=== PATIENT | female | born 1935 | race Caucasian/White ===

== ENCOUNTER → 2018-04-14 12:31 | Outpatient (CLI) | payer MEDICARE, OTHER ==
--- NOTE | 2018-04-16 12:11 | ST ---
PATIENT:KIERA MAYFIELD MEDICAL RECORD: [id number] SEX: F LOCATION:[facility] ORDER #: ADMISSION DATE: 04/14/18 AGE OF PATIENT: 83 REFERRING PHYSICIAN: INTERPRETING PHYSICIAN: KIM CONNELLY MD DATE OF SERVICE: 04/14/2018 PROCEDURE: Nuclear stress test. INDICATIONS: Angina, coronary artery disease, hypertension, hyperlipidemia, shortness of breath. She was exercised on standard Lexiscan protocol with 33 mCi of sestamibi injected at peak stress, 11 mCi were used previously for rest images. FINDINGS: Gated SPECT reveals a preserved ejection fraction at 60%. Decreased thickening and brightening throughout the anteroapical segments. SPECT IMAGING: Cardiolite was used as a myocardial perfusion agent. There was a fixed perfusion defect anteroapically compatible with previous anteroapical myocardial infarction. There is no evidence of reversible ischemia and the remaining segments are with homogeneous uptake at rest and stress. OVERALL IMPRESSION: This is an abnormal nuclear stress test with a fixed perfusion defect anteroapically. No evidence of reversible ischemia. Gated SPECT reveals preserved ejection fraction of 60%. Continue medical management of the coronary artery disease and cardiac risk factors. TRANSINT:[id number] Voice Confirmation ID: [id number] DOCUMENT ID: [id number] KIM CONNELLY MD at 1211 CC: [id number] DICTATION DATE: 04/14/18 1603 BENDER MACHINE: 04/15/18 0821 DEP CLI 04/14/18 [place] [id number]
== END | disposition home or self-care (01) ==
LOC: D.HCCARDIO 12:30
DX: I25.10 Atherosclerotic heart disease of native coronary artery without angina pectoris (principal)

== ENCOUNTER → 2018-11-03 09:23 | Outpatient (CLI) | payer MEDICARE, OTHER ==
--- NOTE | 2018-11-11 08:42 | EC ---
PATIENT:KIERA MAYFIELD DATE OF SERVICE: 11/03/18 SEX: F MEDICAL RECORD: [id number] DATE OF : 39 LOCATION:[facility] AGE OF PATIENT: 83 ADMISSION DATE: 11/03/18 REFERRING PHYSICIAN: INTERPRETING PHYSICIAN: MELLISSA LYLE MD ECHOCARDIOGRAM REPORT ECHO CHARGES 4 ECHO COMPLETE Date: 11/03/18 CLINICAL DIAGNOSIS: H/O A-FIB/CAD/HTN ECHOCARDIOGRAPHIC MEASUREMENTS (adult normal given) AC root (d.<3.7cm) 3.2 cm LV Septum d (<1.2 cm> 1.4 cm Valve Excursion 1.8 cm LV Septum (systole) 2.0 cm Left Atria (s.<4.0cm> 3.7 cm LVPW d(<1.2cm) 1.3 cm RV (d.<2.3cm) 2.5 cm LVPW (sytole) 1.8 cm LV diastole(<5.6CM) 5.0 cm MV E-F(>70mm/sec) cm LV systole 2.5 cm LVOT Diameter 1.8 cm MV exc.(>10mm) cm Est.ejection fraction (50-75%) % DOPPLER: LVIT cm/sec A 117 cm/sec E 79.0 cm/sec LA cm/sec RVSP 29.3 mmHg LVOT 84.0 cm/sec AOP1/2T m/s Asc. Ao 120 cm/sec RVOT 40.0 cm/sec RA cm/sec PA 82.0 cm/sec AV Gradient Peak 5.8 mmHg AV Mean 3.1 mmHg AV Area 1.9 cm MV Gradient Peak 6.0 mmHg MV Mean 1.8 mmHg MV Area cm COMMENTS: OP - HC Transplant Worker: David MARCANO KEILA Gyroscope Technician: 3 Dr. Cervantes TAPE# PACS Pericardial Effusion N DATE OF SERVICE: 11/03/2018 Adequate 2D, color flow imaging, spectral Doppler, and M-Mode LVH is present. LV internal dimensions are normal. Wall motion is normal. EF is greater than or equal to 55%. Aortic valve is tricuspid. No evidence of stenosis by Doppler interrogation. Left atrium is normal at 3.7 cm. Mitral valve shows no prolapse. Mitral annular calcification is present with [id number]-bcnrxizn MR. Right-sided chambers are grossly normal. Trace TR. ECHOCARDIOGRAM REPORT [id number] KIERA MAYFIELD TRANSINT:[id number] Voice Confirmation ID: [id number] DOCUMENT ID: [id number] MELLISSA LYLE MD at 0842 CC: [id number] DICTATION DATE: 11/04/18 1410 GRANT WRITER: 11/04/18 1506 DEP CLI 11/03/18 [place] [id number] [place] [id number]
== END | disposition home or self-care (01) ==
LOC: D.HCCARDIO 09:23
PROVIDERS: ATTEND Internal Medicine Interventional Cardiology
DX: I25.10 Atherosclerotic heart disease of native coronary artery without angina pectoris (principal)

== ENCOUNTER → 2019-07-22 09:10 | Outpatient (CLI) | payer MEDICARE, OTHER ==
--- NOTE | ~2019-07-22 | EC ---
PATIENT:KIERA MAYFIELD DATE OF SERVICE: 07/22/19 SEX: F MEDICAL RECORD: [id number] DATE OF : [birth year] LOCATION:D[facility] AGE OF PATIENT: 84 ADMISSION DATE: 07/22/19 REFERRING PHYSICIAN: INTERPRETING PHYSICIAN: MELLISSA LYLE MD ECHOCARDIOGRAM REPORT ECHO CHARGES 4 ECHO COMPLETE Date: 07/22/19 CLINICAL DIAGNOSIS: A-FIB H/O HTN/CAD ECHOCARDIOGRAPHIC MEASUREMENTS (adult normal given) AC root (d.<3.7cm) 3.0 cm LV Septum d (<1.2 cm> 1.3 cm Valve Excursion 1.2 cm LV Septum (systole) 1.6 cm Left Atria (s.<4.0cm> 3.8 cm LVPW d(<1.2cm) 1.0 cm RV (d.<2.3cm) 2.3 cm LVPW (sytole) 1.5 cm LV diastole(<5.6CM) 5.0 cm MV E-F(>70mm/sec) cm LV systole 3.2 cm LVOT Diameter 1.7 cm MV exc.(>10mm) cm Est.ejection fraction (50-75%) % DOPPLER: LVIT cm/sec A 136 cm/sec E 85.0 cm/sec LA cm/sec RVSP 30.0 mmHg LVOT 122 cm/sec AOP1/2T m/s Asc. Ao 143 cm/sec RVOT 46.0 cm/sec RA cm/sec PA 77.0 cm/sec AV Gradient Peak 8.2 mmHg AV Mean 4.1 mmHg AV Area 1.7 cm MV Gradient Peak 6.3 mmHg MV Mean 1.9 mmHg MV Area cm COMMENTS: OP - HC Offal Separator: David MARCANO KEILA Die Barber: 3 Dr. Cervantes TAPE# PACS Pericardial Effusion N DATE OF SERVICE: Adequate 2D, color flow imaging, spectral Doppler, and M-Mode. LVH is present. LV internal dimension is normal. Wall motion is normal. EF is greater than or equal to 55%. Aortic valve is tricuspid. No evidence of stenosis by Doppler interrogation. Left atrium is normal at 3.8 cm. Mitral valve shows no prolapse. Mild MR. Right-sided chambers are grossly normal. Trace TR. ECHOCARDIOGRAM REPORT [id number] KIERA MAYFIELD TRANSINT:[id number] Voice Confirmation ID: [id number] DOCUMENT ID: [id number] MELLISSA LYLE MD CC: [id number] DICTATION DATE: 07/25/19 112 NUTRITION SPECIALIST: 07/25/19 1300 DEP CLI 07/22/19 [place] [id number] [place] [id number]
== END | disposition home or self-care (01) ==
LOC: D.HCCECHO 09:10
PROVIDERS: ATTEND Internal Medicine Interventional Cardiology
DX: I10 Essential (primary) hypertension (principal)